=== PATIENT | female | born 1940 | race Caucasian/White ===

== ENCOUNTER → 2017-08-24 | Outpatient (CLI) | payer OTHER ==
[~2017-08-24] VITALS: Ht 167.6 cm; Wt 107.5 kg
[~2017-08-24] MED LIST: AMBIEN 5 MG TABL5 M1 PO; BYETTA PEN 11 PENINJ SC; CLONAZEPAM 1 MG1 M1 PO; COLESTIPOL HCL1 G1 PO; COQ-10100 MG PO; CRESTOR10 MG PO; CYMBALTA30 MG PO; DICLOXACILLIN250 M1 OR; HYDROCHLOROTHIA25 M1 PO; KLOR-CON 10 ER10 MEQ PO; LEVOTHYROXINE0.05 MG PO; LEXAPRO20 MG PO; PREVACID30 M2 PO; PROTONIX40 M1 PO; PROZAC20 MG PO; ROXICODONE5 M2 PO; TOPROL XL25 MG PO; TRAMADOL 50 MG50 MG PO; VALSARTAN-HCTZ1 EAC1 PO; VITAMIN D 5050000 I1 PO; WELLBUTRIN SR150 MG PO; XANAX XR0.5 MG PO
--- NOTE | ~2017-08-24 | HPC ---
[facility] [address] [place] [address] PAIN MANAGEMENT CONSULTATION Name: ABUNDIO CAVANAUGH Room #: REG DARVIN Kasia.#: [id number] Admission: 08/24/17 Attend Phys: Wesley Mckeon MD Discharge: Date of : 42 Report #: [id number] THIS REPORT FOR: //name// CC: Wesley Gonzalez DATE OF SERVICE: 08/24/2017 Followup visit for lumbar radiculopathy, low back pain related to grade 2 spondylolisthesis at L5 on S1. I last saw the patient in 2013, at which time she received a lumbar epidural steroid injection at the level of her spondylolisthesis. She received excellent relief with nearly complete relief noted even in the recovery room. It was well sustained. She has recently been caring for her who has ALS. He is on hospice. He is a home and she is doing a lot of the primary care giving. He is bedfast. They have a Ute lift which has aggravated her back. She is here today for an epidural injection. I spent some time counseling the patient and her daughter regarding her caregiver responsibilities and the role that hospice can play in providing respite care. I spent roughly 25 minutes in consultation today. The patient reports that her pain intensity is currently a 6/10. It is across her low back, radiates around in a radicular fashion to the groin and down into the back of her legs. It is worse with standing and weightbearing, it is not alleviated by position changes. She has been reluctant to use medication other than Tylenol. MEDICATIONS: CoQ10, fluoxetine, bupropion, Protonix, hydrochlorothiazide, Toprol, vitamin D, Crestor, Synthroid. ALLERGIES: CODEINE. PAST MEDICAL HISTORY: Remarkable for vlc-rpbhstw-mbmkgfrpe diabetes. PAST SURGICAL HISTORY: Cholecystectomy, hysterectomy. REVIEW OF SYSTEMS: Depression, situational; fatigue; weakness; dyspnea on exertion; history of depression. PHYSICAL EXAMINATION: GENERAL: She is pleasant female. She is tearful during the description of her condition. VITAL SIGNS: Blood pressure 122/76, heart rate 68, respirations 18. [facility] [address] [place] [address] PAIN MANAGEMENT CONSULTATION Name: ABUNDIO CAVANAUGH Room #: REG [facility]#: [id number] Admission: 08/24/17 Attend Phys: Wesley Mckeon MD Discharge: Date of : 42 Report #: [id number] MUSCULOSKELETAL: She is able to move from sitting to standing position, walk short steps. She has pain across her low back and tenderness. She has pain with forward flexion and extension. She has bilateral straight leg raising discomfort which reproduces pain in the back and into the groin and down the legs. There is marked tenderness around the area of the lumbosacral segment at the level of her spondylolisthesis. Sensation is normal in lower extremities. Deep tendon reflexes are diminished at knees and ankles in a symmetrical fashion. IMPRESSION: Low back pain with radiculopathy, related to lumbar spondylosis and grade 1-2 spondylolisthesis related to pars defect at L5. There is bilateral neural foraminal narrowing. RECOMMENDATION: Epidural steroid injection under fluoroscopic guidance. The patient was taken to the fluoroscopic suite for the treatment. She was placed prone. She was prepped with ChloraPrep. Skin anesthetized over the L5-S1 interspace and a 20-gauge Tuohy epidural needle advanced first attempt in the epidural space with loss of resistance technique. There was no blood nor CSF aspirated. 1 mL of Omnipaque was injected and good spread of dye observed in the epidural space, this was then followed by 3 mL of 0.5% lidocaine mixed with 80 mg of triamcinolone. She tolerated the procedure well and was observed for 45 minutes and discharged. Followup visit planned in the pain clinic on an as-needed basis. No medications were ordered. By: [id number] Wesley Mckeon MD /nt
[2017-08-24 09:19] VITALS: BP 122/76
== END ==
LOC: PAIN 07:12
DX: M54.16 Radiculopathy, lumbar region (principal); F32.9 Major depressive disorder, single episode, unspecified; E11.9 Type 2 diabetes mellitus without complications; M54.5 Low back pain; I10 Essential (primary) hypertension; Z88.5 Allergy status to narcotic agent; Z98.890 Other specified postprocedural states; Z90.710 Acquired absence of both cervix and uterus

== ENCOUNTER → 2018-06-24 | Outpatient (CLI) | payer OTHER ==
[~2018-06-24] VITALS: Ht 167.6 cm; Wt 108.2 kg
[~2018-06-24] MED LIST changes: +SERTRALINE HCL50 MG PO
--- NOTE | ~2018-06-24 | HPC ---
[facility] [address] [place] [address] PAIN MANAGEMENT CONSULTATION Name: ABUNDIO CAVANAUGH Room #: REG [facility] Kasia.#: [id number] Admission: 06/24/18 Attend Phys: Wesley Mckeon MD Discharge: Date of : 42 Report #: [id number] THIS REPORT FOR: //name// CC: Wesley Gonzalez DATE OF SERVICE: 06/24/2018 Followup visit for grade 2 lumbar spondylolisthesis L5 on S1. The patient returns to pain clinic today and she is with her daughter, Jaye. She cried throughout much of her visit today. I spent some time counseling her about her caregiving issues with her . Her has ALS and she has been the primary caregiver providing very aggressive personal hygiene care, lifting and caring from a number of years. She has ongoing severe pain in her low back that has responded to epidural injections partially, but she reports that the pain is getting worse. They have a Ute lift and she has tried to use that, but the caregiving roles are quite challenging for her. At last visit, I talked to her about taking the benefit of the hospice respite care. She has not done that. Her conflicts at this point in time are that she feels that she needs to move her into a nursing facility. Finances are not a problem fortunately because he is a and he has full 100% [employer] benefits for [facility]. I have encouraged her to look seriously at that, I think that she can provide support for him in a loving manner and allow the caregiving hygiene to be done by the nursing professionals. They have been for 30 years. Her pain today in her PQRS review shows 8-9/10 in intensity with activities. Pain is mostly across the low back, but some radiation down into the hips. She is a fall risk. She is not on blood thinners at this time. PHYSICAL EXAMINATION: As she was at last visit 6 months ago, she cried through her visit today. She is able to move independently from sitting to standing position, but she is forward flexed slightly as she ambulates. Her gait is antalgic. Pain is noted with forward flexion and extension. She has marked tenderness across the lumbosacral segment, particularly overlying the L5 spinous process. This is the level of her spondylolisthesis. Sensation and strength are normal in the lower extremities. Deep tendon reflexes are absent in the knees and ankles. IMPRESSION: 1. Chronic low back pain with radiculopathy. 2. Lumbar spondylolisthesis at L2 with pars defect at L5. Bilateral neural foraminal narrowing is noted. [address] [address] PAIN MANAGEMENT CONSULTATION Name: ABUNDIO CAVANAUGH Room #: REG [facility] Diana#: [id number] Admission: 06/24/18 Attend Phys: Wesley Mckeon MD Discharge: Date of : 42 Report #: [id number] 3. Situational depression related to the burdens of caregiving 4. Noninsulin-dependent diabetes. RECOMMENDATION: Epidural steroid injection under fluoroscopic guidance. PROCEDURE: After informed consent, she was taken to the fluoroscopic suite, placed prone, skin prepped with ChloraPrep. Skin anesthetized over L4-L5. A 20-gauge Tuohy epidural needle advanced into the epidural space with loss of resistance technique. There was no blood or CSF aspirated. 1 mL of Omnipaque was injected. Good spread of dye observed into the epidural space, followed by 3 mL of 0.5% lidocaine. She tolerated the procedure well. Pain was reduced in the recovery room. She was discharged to the care of her granddaughter and a followup visit planned as needed. By: [id number] Wesley Mckeon MD /nt
[2018-06-24 14:34] VITALS: BP 138/74
== END | disposition home or self-care (01) ==
LOC: PAIN 06:42
DX: M43.16 Spondylolisthesis, lumbar region (principal); G89.29 Other chronic pain; M99.73 Connective tissue and disc stenosis of intervertebral foramina of lumbar region; M54.16 Radiculopathy, lumbar region; F32.89 Other specified depressive episodes; E11.9 Type 2 diabetes mellitus without complications; Z88.8 Allergy status to other drugs, medicaments and biological substances; Z79.899 Other long term (current) drug therapy

== ENCOUNTER → 2018-07-15 | Outpatient (CLI) | payer OTHER ==
[~2018-07-15] VITALS: Ht 167.6 cm; Wt 112.0 kg
--- NOTE | ~2018-07-15 | HPC ---
[facility] [address] [place] [address] PAIN MANAGEMENT CONSULTATION Name: ABUNDIO CAVANAUGH Room #: REG DARVIN Pedroza.#: [id number] Admission: 07/15/18 Attend Phys: Wesley Mckeon MD Discharge: Date of : 42 Report #: [id number] THIS REPORT FOR: //name// CC: Wesley Gonzalez DATE OF SERVICE: 07/15/2018 Followup visit for chronic low back pain and grade 2 lumbar spondylolisthesis, L5 on S1. The patient returns to pain clinic today and is calmer today and more peace. When she was here recently, she was very distraught about the situation at home. She has been providing caregiving to her and was suffering from both the physical and emotional toll. We talked at great length about the importance of providing with a safe environment, one where the care could be provided and she could simply love him. She has taken that advice and has moved him into a nursing facility and things are going more smoothly. She does, however, continue to have pain. Injections have been of limited benefit. Her pain is in the lumbosacral segment, but she also has localized pain and tenderness in the costovertebral angle. She has some pain in the sacroiliac joints as well. Straight leg raising reproduces pain mostly into the left hip. She has some mild hip pain with internal and external rotation. IMPRESSION: 1. Chronic low back pain with radiculopathy secondary to spondylolisthesis at L5-S1 with an associated 1.5 cm spondylolisthesis. 2. Lumbosacral pain with costovertebral angle tenderness. Question mechanical or possibly visceral pain. 3. Depression, improved. 4. Non-insulin dependent diabetes. RECOMMENDATIONS: 1. I have ordered a CT scan of her abdomen, pelvis and lumbosacral spine. 2. UA is ordered. 3. Followup visit in 1-2 weeks. 4. Consider a repeat epidural injection. By: [id number] Wesley Mckeon MD /nt
[2018-07-15 12:43] VITALS: BP 126/62
[2018-07-16 13:47] LABS: URINE BILIRUBIN NEGATIVE (Negative); URINE BLOOD TRACE (Negative); URINE CLARITY CLEAR; URINE COLOR YELLOW; URINE GLUCOSE-RANDOM* NEGATIVE (Negative); URINE KETONES NEGATIVE (Negative); URINE LEUKOCYTES 2+ (Negative); URINE NITRITE NEGATIVE (Negative); URINE PROTEIN (DIPSTICK) NEGATIVE (Negative); URINE UROBILINOGEN 0.2 E.U./dl (0.2-1.0)
[2018-07-16 14:10] LABS: BACTERIA 1-9 Few /HPF (None Seen); CASTS None Seen /LPF (None Seen); CRYSTALS None Seen /LPF (None Seen); SQUAMOUS None Seen /LPF (0-3); URINE RBC 0-2 Rare /HPF (0-2)
== END ==
LOC: CAT 07:28 → PAIN 07:28
PROVIDERS: Anesthesiology Pain Medicine
DX: M47.27 Other spondylosis with radiculopathy, lumbosacral region (principal); M51.16 Intervertebral disc disorders with radiculopathy, lumbar region; E11.9 Type 2 diabetes mellitus without complications; M43.17 Spondylolisthesis, lumbosacral region; M48.062 Spinal stenosis, lumbar region with neurogenic claudication; G89.29 Other chronic pain